=== PATIENT | male | born 1960 | race Two or more races ===

== ENCOUNTER 2023-09-20 13:16 | Inpatient (IN) | payer BC ==
[2023-09-20 14:27] VITALS: BMI 27.6
[2023-09-20] MEDS ORDERED: METHOCARBAMOL 500 MG TABLET PO PRN (18:00)
[2023-09-20] MEDS ORDERED: LORazepam 1 MG TABLET PO PRN (18:00)
[2023-09-20] MEDS ORDERED: ACETAMINOPHEN 325 MG TABLET (FP) PO PRN (18:00)
[2023-09-20] MEDS ORDERED: IBUPROFEN 400 MG TABLET (FP) PO PRN (18:00)
[2023-09-20] MEDS ORDERED: IBUPROFEN 600 MG TABLET (FP) PO PRN (18:00)
[2023-09-20] MEDS ORDERED: NALOXONE HCL (KLOXXADO) 8 MG SPRAY NS PRN (18:00)
[2023-09-20] MEDS ORDERED: LOPERAMIDE HCL 2 MG CAPSULE PO PRN (18:00)
[2023-09-20] MEDS ORDERED: NALOXONE HCL 0.4 MG/ML VIAL IM PRN (18:00)
[2023-09-20] MEDS ORDERED: MAG HYDROX/AL HYDROX/SIMETH 30 ML UNIT-DOSE CUP PO PRN (18:00)
[2023-09-20] MEDS ORDERED: BISMUTH SUBSALICYLATE 524 MG/30 ML PO PRN (18:00)
[2023-09-20] MEDS ORDERED: ONDANSETRON *ODT* 4 MG TABLET SL PRN (18:00)
[2023-09-20] MEDS ORDERED: POLYETHYLENE GLYCOL (HEALTHYLAX) 3350 17 GM PACKET PO PRN (18:00)
[2023-09-20] MEDS ORDERED: DICYCLOMINE HCL 10 MG CAPSULE PO PRN (18:00)
[2023-09-20] MEDS ORDERED: MAGNESIUM HYDROX 2400MG/30ML ORAL SUSPENSION 30 ML CUP PO PRN (18:00)
[2023-09-20] MEDS ORDERED: BENZONATATE 200 MG CAPSULE PO PRN (18:00)
[2023-09-20] MEDS ORDERED: hydrOXYzine PAMOATE 25 MG CAPSULE (FP) PO PRN (18:00)
[2023-09-20] MEDS ORDERED: BENZOCAINE/MENTHOL (CHLORASEPTIC ) LOZENGE MM PRN (18:00)
[2023-09-20] MEDS ORDERED: guaiFENesin 600 MG TABLET.ER (FP) PO PRN (18:00)
[2023-09-20] MEDS: LORazepam 2 MG TABLET PO SCH (22:23)
[2023-09-20] MEDS: THIAMINE 100 MG TABLET PO SCH (22:23)
[2023-09-20] MEDS: MELATONIN 5 MG TABLETS PO SCH (22:24)
[2023-09-21] MEDS: ASPIRIN 81 MG CHEWABLE TABLETS PO SCH (10:46)
[2023-09-21] MEDS: PRENATAL VITAMINS W/ FOLIC ACID TABLET (FP) PO SCH (10:46)
[2023-09-21 11:45] LABS: HEMATOCRIT 34.9 % (35.4-49); MCH 31.7 pg (25.7-33.7); MCHC 34.4 g/dl (32.0-35.9); MEAN CELL VOLUME 92.3 fl (80-96); MEAN PLT VOLUME 7.6 fl (7.5-11.1); PLATELET COUNT 288 10^3/uL (134-434); RBC 3.78 M/mm3 (4.00-5.60); RDW 14.6 % (11.9-15.9); WHITE BLOOD COUNT 6.5 K/mm3 (4.0-10.0)
[2023-09-21 11:46] LABS: CHLORIDE 107 mmol/L (98-107); POTASSIUM 4.5 mmol/L (3.5-5.1); SODIUM 140 mmol/L (136-145)
[2023-09-21 11:56] LABS: BLOOD UREA NITROGEN 20.8 mg/dL (7-18)
[2023-09-21 11:57] LABS: ALBUMIN 2.7 g/dl (3.4-5.0); GLUCOSE,RANDOM 105 mg/dL (74-106)
[2023-09-21 11:59] LABS: CALCIUM 8.4 mg/dL (8.5-10.1)
[2023-09-21 12:00] LABS: ANION GAP 2 mmol/L (4-13); CO2 30 mmol/L (21-32); CREATININE 0.9 mg/dL (0.55-1.3); SGOT/AST 20 U/L (15-37)
[2023-09-21 12:01] LABS: BILIRUBIN,TOTAL 0.4 mg/dL (0.2-1); SGPT/ALT 19 U/L (13-61); TOT PROT 6.3 g/dl (6.4-8.2)
[2023-09-21 12:06] LABS: ALK PHOS 44 U/L (45-117)
[2023-09-22] MEDS: LORazepam 1 MG TABLET PO SCH (05:14)
[2023-09-23] MEDS ORDERED: LORazepam 0.5 MG TABLET PO PRN
[2023-09-23] MEDS: LORazepam 0.5 MG TABLET PO SCH (05:26)
[2023-09-24] MEDS: LORazepam 0.5 MG TABLET PO ONE (05:19)
[2023-09-24 09:26] VITALS: BP 117/73; PULSE 61; RESP 17; TEMP 97.7
== END 2023-09-24 11:25 | disposition home or self-care (01) | DRG 775 ==
LOC: YASAS 13:16 → Y6N 18:08
PROVIDERS: ADMIT Allergy & Immunology; ATTEND Surgery
PROC: HZ2ZZZZ Detoxification Services for Substance Abuse Treatment (ICD-10-PCS; principal; 2023-09-20)
DX: F10.230 Alcohol dependence with withdrawal, uncomplicated (principal); R79.89 Other specified abnormal findings of blood chemistry; Z59.00 Homelessness unspecified
CPT/HCPCS: 36415; 71046-TC-FY; 80053; 80305; 80307; 85027; 86780; 93005; 93010

== ENCOUNTER 2025-01-11 08:16 | Inpatient (IN) | payer BC ==
[2025-01-11 08:52] VITALS: BMI 31.1
[2025-01-11] MEDS ORDERED: ONDANSETRON *ODT* 4 MG TABLET SL PRN (09:04)
[2025-01-11] MEDS ORDERED: NICOTINE POLACRILEX 2 MG LOZENGE BC PRN (09:04)
[2025-01-11] MEDS ORDERED: ACETAMINOPHEN 325 MG TABLET (FP) PO PRN (09:04)
[2025-01-11] MEDS ORDERED: BENZONATATE 200 MG CAPSULE PO PRN (09:04)
[2025-01-11] MEDS ORDERED: MAGNESIUM HYDROX 2400MG/30ML ORAL SUSPENSION 30 ML CUP PO PRN (09:04)
[2025-01-11] MEDS ORDERED: LOPERAMIDE HCL 2 MG CAPSULE PO PRN (09:04)
[2025-01-11] MEDS ORDERED: BISMUTH SUBSALICYLATE 524 MG/30 ML PO PRN (09:04)
[2025-01-11] MEDS ORDERED: IBUPROFEN 400 MG TABLET (FP) PO PRN (09:04)
[2025-01-11] MEDS ORDERED: guaiFENesin 600 MG TABLET.ER (FP) PO PRN (09:04)
[2025-01-11] MEDS ORDERED: MAG HYDROX/AL HYDROX/SIMETH 30 ML UNIT-DOSE CUP PO PRN (09:04)
[2025-01-11] MEDS ORDERED: NICOTINE POLACRILEX 2 MG GUM BUC PRN (09:04)
[2025-01-11] MEDS ORDERED: BENZOCAINE/MENTHOL (CHLORASEPTIC ) LOZENGE MM PRN (09:04)
[2025-01-11] MEDS ORDERED: POLYETHYLENE GLYCOL (HEALTHYLAX) 3350 17 GM PACKET PO PRN (09:04)
[2025-01-11] MEDS ORDERED: NALOXONE (NARCAN) HCL 4 MG/0.1 ML SPRAY NS PRN (09:04)
[2025-01-11] MEDS: PRENATAL VITAMINS W/ FOLIC ACID TABLET (FP) PO SCH (10:23)
[2025-01-11] MEDS: METHOCARBAMOL 500 MG TABLET PO PRN (22:30)
[2025-01-11] MEDS: hydrOXYzine PAMOATE 25 MG CAPSULE (FP) PO PRN (22:30)
[2025-01-11] MEDS: THIAMINE 100 MG TABLET PO SCH (22:30)
[2025-01-11] MEDS: MELATONIN 5 MG TABLETS PO SCH (22:30)
[2025-01-12] MEDS: ASPIRIN 81 MG CHEWABLE TABLETS PO SCH (09:26)
[2025-01-12] MEDS: IBUPROFEN 600 MG TABLET (FP) PO PRN (09:27)
[2025-01-12 09:41] LABS: MCHC 32.1 g/dl (32.3-36.5); MEAN CELL VOLUME 92.5 fl (79.0-92.2); MEAN PLT VOLUME 9.2 fl (9.4-12.4); RDW 12.8 % (12.2-16.4)
[2025-01-12 10:08] LABS: GLUCOSE,RANDOM 98 mg/dL (74-106); TOT PROT 6.7 g/dl (6.4-8.2)
[2025-01-12 10:09] LABS: CO2 26 mmol/L (21-32)
[2025-01-12 10:11] LABS: ALK PHOS 52 U/L (40-150)
[2025-01-12 10:14] LABS: CREATININE 0.92 mg/dL (0.55-1.3); SGOT/AST 26 U/L (5-34); SGPT/ALT 23 U/L (0-55)
[2025-01-12] MEDS: SUVOREXANT 10 MG TABLET PO PRN (22:25)
[2025-01-13 08:27] VITALS: RESP 16
[2025-01-13] MEDS: NALTREXONE HCL 50 MG TABLET PO ONE (10:32)
[2025-01-13 12:28] VITALS: BP 117/70; PULSE 55; TEMP 97.8
[2025-01-14] MEDS ORDERED: NALTREXONE HCL 50 MG TABLET PO SCH (10:00)
== END 2025-01-13 14:32 | disposition other institution (70) | DRG 774 ==
LOC: YASAS 08:16 → Y6N 09:28
PROVIDERS: ADMIT Neuromusculoskeletal Medicine & OMM; ATTEND Student in an Organized Health Care Education/Training Program
PROC: HZ2ZZZZ Detoxification Services for Substance Abuse Treatment (ICD-10-PCS; principal; 2025-01-11)
DX: F10.20 Alcohol dependence, uncomplicated (principal); F14.20 Cocaine dependence, uncomplicated; F12.20 Cannabis dependence, uncomplicated; F17.210 Nicotine dependence, cigarettes, uncomplicated; F19.282 Other psychoactive substance dependence with psychoactive substance-induced sleep disorder; I25.10 Atherosclerotic heart disease of native coronary artery without angina pectoris; M54.50 Low back pain, unspecified; G89.29 Other chronic pain; R76.11 Nonspecific reaction to tuberculin skin test without active tuberculosis; Z86.73 Personal history of transient ischemic attack (TIA), and cerebral infarction without residual deficits
CPT/HCPCS: 36415; 80053; 80307; 85027; 86780; 93005; 93010

== ENCOUNTER 2025-02-14 11:11 | Inpatient (IN) | payer BC ==
[2025-02-14 12:01] VITALS: BMI 29.1
[2025-02-14] MEDS ORDERED: ONDANSETRON *ODT* 4 MG TABLET SL PRN (12:40)
[2025-02-14] MEDS ORDERED: ACETAMINOPHEN 325 MG TABLET (FP) PO PRN (12:40)
[2025-02-14] MEDS ORDERED: MAG HYDROX/AL HYDROX/SIMETH 30 ML UNIT-DOSE CUP PO PRN (12:40)
[2025-02-14] MEDS ORDERED: LOPERAMIDE HCL 2 MG CAPSULE PO PRN (12:40)
[2025-02-14] MEDS ORDERED: BENZOCAINE/MENTHOL (CHLORASEPTIC ) LOZENGE MM PRN (12:40)
[2025-02-14] MEDS ORDERED: BENZONATATE 200 MG CAPSULE PO PRN (12:40)
[2025-02-14] MEDS ORDERED: NALOXONE (NARCAN) HCL 4 MG/0.1 ML SPRAY NS PRN (12:40)
[2025-02-14] MEDS ORDERED: IBUPROFEN 400 MG TABLET (FP) PO PRN (12:40)
[2025-02-14] MEDS ORDERED: DICYCLOMINE HCL 10 MG CAPSULE PO PRN (12:40)
[2025-02-14] MEDS ORDERED: MAGNESIUM HYDROX 2400MG/30ML ORAL SUSPENSION 30 ML CUP PO PRN (12:40)
[2025-02-14] MEDS ORDERED: NICOTINE POLACRILEX 4 MG GUM BUC PRN (12:40)
[2025-02-14] MEDS ORDERED: guaiFENesin 600 MG TABLET.ER (FP) PO PRN (12:40)
[2025-02-14] MEDS ORDERED: POLYETHYLENE GLYCOL (HEALTHYLAX) 3350 17 GM PACKET PO PRN (12:40)
[2025-02-14] MEDS ORDERED: BISMUTH SUBSALICYLATE 524 MG/30 ML PO PRN (12:40)
[2025-02-14] MEDS: PRENATAL VITAMINS W/ FOLIC ACID TABLET (FP) PO SCH (14:51)
[2025-02-14] MEDS ORDERED: PRENATAL VITAMINS W/ FOLIC ACID TABLET (FP) PO ONE (15:41)
[2025-02-14] MEDS: THIAMINE 100 MG TABLET PO SCH (22:01)
[2025-02-14] MEDS: MELATONIN 5 MG TABLETS PO SCH (22:01)
[2025-02-14] MEDS: METHOCARBAMOL 500 MG TABLET PO PRN (22:01)
[2025-02-14] MEDS: hydrOXYzine PAMOATE 25 MG CAPSULE (FP) PO PRN (22:02)
[2025-02-15] MEDS: IBUPROFEN 600 MG TABLET (FP) PO PRN (10:14)
[2025-02-15] MEDS: ASPIRIN 81 MG CHEWABLE TABLETS PO SCH (10:14)
[2025-02-15 12:01] LABS: MCHC 31.9 g/dl (32.3-36.5); MEAN CELL VOLUME 92.8 fl (79.0-92.2); MEAN PLT VOLUME 9.4 fl (9.4-12.4); RDW 13.1 % (12.2-16.4)
[2025-02-15 12:23] LABS: GLUCOSE,RANDOM 103.0 mg/dL (74-106)
[2025-02-15 12:24] LABS: TOT PROT 6.2 g/dl (6.4-8.2)
[2025-02-15 12:25] LABS: CO2 29.0 mmol/L (21-32)
[2025-02-15 12:26] LABS: ALK PHOS 49.0 U/L (40-150)
[2025-02-15 12:29] LABS: CREATININE 0.87 mg/dL (0.55-1.3); SGOT/AST 21.0 U/L (5-34); SGPT/ALT 16.0 U/L (0-55)
[2025-02-16] MEDS: FLU VACC TS2025-26(6MOS UP)/PF 45 MCG/0.5 ML SYRINGE IM ONE (11:25)
[2025-02-17 06:05] VITALS: RESP 16
[2025-02-17 09:16] VITALS: BP 107/66; PULSE 62; TEMP 98.9
== END 2025-02-17 09:22 | disposition home or self-care (01) | DRG 774 ==
LOC: YASAS 11:11 → Y6N 15:34
PROVIDERS: ADMIT Allergy & Immunology; ATTEND Allergy & Immunology
PROC: HZ2ZZZZ Detoxification Services for Substance Abuse Treatment (ICD-10-PCS; principal; 2025-02-14)
DX: F10.230 Alcohol dependence with withdrawal, uncomplicated (principal); F14.20 Cocaine dependence, uncomplicated; F12.20 Cannabis dependence, uncomplicated; F17.210 Nicotine dependence, cigarettes, uncomplicated; I25.10 Atherosclerotic heart disease of native coronary artery without angina pectoris; M54.50 Low back pain, unspecified; G89.29 Other chronic pain; Z86.11 Personal history of tuberculosis; Z59.02 Unsheltered homelessness
CPT/HCPCS: 36415; 80053; 80305; 80307; 85027; 86780; 90656; 93005; 93010